=== PATIENT | female | born 1970 | race Caucasian/White ===

== ENCOUNTER 2016-12-09 09:25 | Emergency (ER) | payer OTHER ==
[~2016-12-09] VITALS: Ht 162.6 cm; Wt 54.4 kg
[~2016-12-09 09:25] MED LIST: ALDACTONE50 MG PO; CLEOCIN HCL300 MG PO; COREG12.5 MG PO; COUMADIN4 MG PO; COUMADIN5 MG PO; FUROSEMIDE20 M1 PO; K-DUR20 MEQ PO; LASIX40 MG PO; MACROBID100 M1 PO; MAG-OX 400400 MG PO; NIFEDICAL XL30 MG PO; PREDNISONE20 MG PO; RENAGEL800 MG PO; VITAMIN D2000 I1 PO; ZESTRIL5 MG PO; ZITHROMAX250 MG PO; ZOCOR80 MG PO
--- NOTE | 2016-12-09 09:25 | NUR ---
Patient MACK LOPEZ, transferred to bed 2. Dr. Herndon and RN evaluating patient at bedside. Addendum: 12/09/16 at 0943 by MNURDVV XRAY AT BEDSIDE
[2016-12-09 09:31] VITALS: BP 86/50
--- NOTE | 2016-12-09 09:55 | NUR ---
BIBA DUE TO WEAKNESS AND SOB, EMS UNABLE TO PUT IV LINE, PER SON PT WILL GO BATHROOM AMD SHE SUDDENLY FEEL WEAK, PT LETHARGIC, NO PAIN NOTED, FAMILY DENIES N/V/D AT HOME, SKIN VERY PALE, NOTED MULTIPLE BRUISES ON BOTH UPPER AND LOWER EXTREMITIES AND CHEST, EDMEA PITTING +3 ON BOTH LOWER EXTREMITIES, NOTED ALSO DRY SCAB ON RIGHT FOOT, PUT PT ON NON REBREATHER MASK DUE TO LOW O2 SAT, DR. MENARD AT BEDSIDE WILL DO CENTRAL LINE PLACEMENT
--- NOTE | 2016-12-09 09:55 | NUR ---
Note swapnalove in EDM - 12/09/16 at 1339 by MNURDVV BROUGHT IN BY EMS DUE TO WEAKNESS PER SON PT WANTS TO GO TO THE BATHROOM AND PT JUST FEEL WEAK, PT AAO, BUT VERY WEAK, BS 290, PT PALE, SKIN WARM TO TOUCH RES. EVEN AND UNLABORED, PUT PT ON NON REBREATHER MASK, O2 SAT 78, DFR. DEHKORDI AT BEDSIDE GWEN DO CENTRAL LINE INSERTION, PT AAO BUT VERY WEAK.
--- NOTE | 2016-12-09 09:57 | NUR ---
LAB AT BEDSIDE
--- NOTE | 2016-12-09 10:00 | NUR ---
Dr. Herndon and RN at bedside for central line placement.
--- NOTE | 2016-12-09 10:06 | NUR ---
NOTED ALSO MULTIPLE BRUISES ON BOTH UPPER EXTREMITIES AND CHEST PUPLISH IN COLOR, DRYNESS NOTED ON BOTH PLANTAR, WILL CHECK SACRAL LATER.
--- NOTE | 2016-12-09 10:27 | NUR ---
NOTED BRUISE ON LOWER EXTREMITIES AND DRY SCAB ON RIGHT FOOT.
--- NOTE | 2016-12-09 11:12 | NUR ---
TRY 2X CENTRALINE INSERTION ON THE JUGULAR BUT UNABLE, CHARGE NURSE ALSO TRY INSERTING IV BUT UNABLE PT AWAKE, WITH CONFUSION, ON NON REBREATHER MASK
--- NOTE | 2016-12-09 11:15 | NUR ---
US tech at bedside for exam.
--- NOTE | 2016-12-09 11:17 | NUR ---
LAB AT BEDSIDE TRYING TO GET BLOOD
--- NOTE | 2016-12-09 11:30 | NUR ---
Dr. Herndon at bedside with US tech and RN for US guided central line placement.
--- NOTE | 2016-12-09 11:31 | NUR ---
DR. MENARD AT BEDSIDE AGAIN WILL TRY ANOTHER PLACEMENT OF CENTRAL LINE WITH US TECH
--- NOTE | 2016-12-09 12:07 | NUR ---
UNABLE TO INSERT CENTRAL LINE,
[2016-12-09 12:10] VITALS: BP 42/33
[2016-12-09] MEDS ORDERED: RACEPINEPHRINE 2.25% 13.5 MG/0.5 ML NEBU INH ONE (12:15)
--- NOTE | 2016-12-09 12:15 | NUR ---
PT LETHARGIC/OBTUNDED 02 SAT GOING DOWN,PREPARE PT FOR INTUBATION.
--- NOTE | 2016-12-09 12:15 | NUR ---
ABNORMAL LAB VALUES FOR BUN, PT INR, APPT REPORTED DR. COLEMAN
--- NOTE | 2016-12-09 12:15 | NUR ---
Dr. Herndon at bedside for endotracheal intubation.
--- NOTE | 2016-12-09 12:16 | NUR ---
CALLED AT 1210 TO INTUBATE PT SIZE 7.0 24 CM SECURED [address] MENARD WITH CPR
--- NOTE | 2016-12-09 12:20 | NUR ---
INTUBATED AT THIS TIME
--- NOTE | 2016-12-09 12:30 | NUR ---
FAMILY AT BEDSIDE, DURING THE CODE, ER MD SPOKE TO FAMILY REGARDING CONDITION OF PT
--- NOTE | 2016-12-09 12:31 | NUR ---
LACTIC ACID ABNORMAL VALUE REPOSTED TO MD COLEMAN
--- NOTE | 2016-12-09 12:41 | NUR ---
PT SEE CODE SHEET
--- NOTE | 2016-12-09 12:45 | NUR ---
BRANDON MORROW WITH THE FAMILY, SON AND IN THE QUIET ROOM INFORMING FAMILY OF PT CONDITION
--- NOTE | 2016-12-09 13:18 | NUR ---
TALKED TO HECTOR FROM [facility] WILL CALL ME BACK
--- NOTE | 2016-12-09 13:31 | NUR ---
Jania rocha in [facility] - 12/09/16 at 1443 by CHELSEA LACTIC ACID ABNORMAL VALUE REPOSTED TO MD COLEMAN
--- NOTE | 2016-12-09 14:27 | NUR ---
HECTOR FROM [facility] [phone] CALL ME BACK AND SHE IS STILL WAITING FOR SON
--- NOTE | 2016-12-09 14:50 | NUR ---
KEYA SPOKE TO MORE FAMILY MEMBERS WITH AND
--- NOTE | 2016-12-09 15:07 | NUR ---
[facility] TALKING TO AND VIA PHONE
--- NOTE | 2016-12-09 15:36 | NUR ---
FAMILY MADE AWARE THAT PATIENT BEEN RELEASESD BY WHEELCHAIR [employer]AN [employer] WITH UNDERSTANDING. LIST OF MORTUARY PROVIDED TO FAMILY WHILE WAITING TO SEE PATIENT
--- NOTE | 2016-12-09 15:41 | NUR ---
TALKED TO HECTOR [facility] [employer] MAY ALLIED HEALTH PROFESSIONAL THE BODY BUT THE BODY MUST BE HOLD, MORTUARY CAN CALL [facility] OFFICE ON SUNDAY.
--- NOTE | 2016-12-09 16:43 | NUR ---
PT TRANSFER TO ROOM 126
--- NOTE | 2016-12-09 17:16 | NUR ---
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 ACCEPTING MORTUARY, [facility], MADE AWARE TO HOLD THE BODY TILL PIPEFITTER WELDER WILL CALL THEM ON SUNDAY WITH UNDERSTANDING. SPOKE TO BHAKTI. FAMILY MADE AWARE OF THE ETA [id number]
--- NOTE | 2016-12-09 19:15 | NUR ---
patient picked up from rm. 126 by [facility]. and son in the room.
== END 2016-12-09 12:41 | disposition expired ==
LOC: MED 09:25
DX: J96.00 Acute respiratory failure, unspecified whether with hypoxia or hypercapnia (principal); I46.9 Cardiac arrest, cause unspecified; I10 Essential (primary) hypertension; Z95.2 Presence of prosthetic heart valve; Z79.899 Other long term (current) drug therapy
CPT/HCPCS: 31500; 36415; 36556; 36600; 36680; 71010; 76937; 80053; 82803; 82948; 83605; 83880; 84484; 85025; 85610; 85730; 92950; 93005; 99291; Q0092